=== PATIENT | male | born 1975 | race Caucasian/White ===

== ENCOUNTER 2016-12-15 05:55 | Emergency (ER) | payer MEDICARE | END 2016-12-15 06:38 | disposition home or self-care (01) | LOC: ER1 05:55 | DX: T78.40XA Allergy, unspecified, initial encounter (principal); F17.200 Nicotine dependence, unspecified, uncomplicated; Z85.038 Personal history of other malignant neoplasm of large intestine | CPT/HCPCS: 99282 ==

== ENCOUNTER 2017-01-28 22:44 | Emergency (ER) | payer MEDICARE ==
[2017-01-29 04:58] LABS: HEMOGLOBIN 16.1 gm/dl (14.0-17.5); RED BLOOD COUNT 5.3 M/UL (4.20-5.50); WHITE BLOOD COUNT 14.7 K/UL (4.5-11.0)
[2017-01-29 05:21] LABS: BUN/CREATININE RATIO 9 (0-10)
== END 2017-01-29 06:40 | disposition home or self-care (01) ==
LOC: ER1 22:44
PROVIDERS: Family Medicine
DX: J06.9 Acute upper respiratory infection, unspecified (principal); F17.210 Nicotine dependence, cigarettes, uncomplicated
CPT/HCPCS: 36415; 71020; 80053; 81001; 85025; 87081; 87880; 96361; 96374; 99283; J2405